=== PATIENT | male | born 1955 | race Hispanic/Latino ===

== ENCOUNTER 2019-01-11 16:51 | Inpatient (IN) | payer MEDICAID, OTHER ==
[~2019-01-11] VITALS: Ht 170.2 cm; Wt 98.0 kg
[~2019-01-11 16:51] MED LIST: APIX5TAB PO; FURO20TA6 PO; GLYB5TAB8 PO; INSU100I21 SQ; LINA5TAB PO; METH-370 PO; METO25 PO
[2019-01-11] MEDS ORDERED: ASPIRIN 81MG TAB.CHEW ONE (17:06)
[2019-01-11] MEDS ORDERED: IOHEXOL 350 MG/ML 100ML INFUS..BTL IV ONE (17:11)
[2019-01-11] MEDS ORDERED: HEPARIN SODIUM 1000UNIT/ML 10ML VIAL ONE (17:11)
[2019-01-11] MEDS ORDERED: LIDOCAINE HCL 2% 20ML ONE (17:11)
[2019-01-11] MEDS ORDERED: NITROGLYCERIN 5 MG/ML 10 ML VIAL IV ONE (17:11)
[2019-01-11] MEDS ORDERED: IOHEXOL-350 50ML VIAL IV ONE (17:11)
[2019-01-11] MEDS ORDERED: ATROPINE SULFATE 0.1 MG/ML 10 ML SYG IVP ONE (17:13)
[2019-01-11] MEDS ORDERED: DOPAMINE HCL 400 MG/D5%-WATER 0 ML IV ONE (17:13)
[2019-01-11] MEDS ORDERED: LIDOCAINE PF 2% 5ML ABBOJECT ONE (17:13)
[2019-01-11] MEDS ORDERED: BIVALIRUDIN 250 MG/VIAL IV ONE (17:16)
[2019-01-11 17:23] LABS: BASOPHILS % (AUTO) 0.4 % (0.0-5.0); EOSINOPHILS % (AUTO) 2.3 % (0.0-8.0); HEMATOCRIT 44.3 % (42-54); LYMPHOCYTES % (AUTO) 47.3 % (21.0-51.0); MEAN CORPUSCULAR HEMOGLOBIN 30.8 pg (27.0-33.0); MEAN CORPUSCULAR HGB CONC 34.2 g/dL (32.0-36.0); MONOCYTES % (AUTO) 11.1 % (3.0-13.0); NEUTROPHILS % (AUTO) 38.9 % (40.0-77.0); NUCLEATED RED BLOOD CELLS 0.1 % (0.0-0.19); PLATELET COUNT (AUTO) 201 K/uL (130-400); RED BLOOD CELL COUNT(AUTO) 4.92 MIL/uL (4.50-6.20); WHITE BLOOD COUNT (AUTO) 7.8 K/uL (4.8-10.8)
[2019-01-11] MEDS ORDERED: DILTIAZEM HCL 5 MG/ML 10 ML VIAL IV ONE ×3 (17:26→19:58)
[2019-01-11 17:29] LABS: CREATININE 0.8 mg/dL (0.5-1.5); POTASSIUM 4.2 mmol/L (3.5-5.1)
[2019-01-11 17:32] LABS: INR 1.01 (0.85-1.15); PARTIAL THROMBOPLASTIN TIME 25.2 SEC (26.3-35.5); PROTHROMBIN TIME 10.6 SEC (9.6-11.6)
[2019-01-11 17:40] LABS: ALBUMIN 3.8 g/dL (3.5-5.0); BILIRUBIN,TOTAL 1.3 mg/dL (0.2-1.0); TOTAL PROTEIN, SERUM 7.5 g/dL (6.0-8.3)
[2019-01-11 17:48] LABS: B-TYPE NATRIURETIC PEPTIDE 160 pg/mL (0-100)
[2019-01-11] MEDS: METOPROLOL TARTRATE 50 MG TAB PO SCH (18:00)
[2019-01-11] MEDS ORDERED: SODIUM CHLORIDE 0.9% 100 ML IV ONE (19:59)
[2019-01-11] MEDS ORDERED: DILTIAZEM 125MG/125ML NS IV PRN (20:00)
[2019-01-11 20:05] LABS: CREATINE KINASE, TOTAL 92 U/L (21-232); MYOGLOBIN 55 ng/mL (10-92); TROPONIN I < 0.04 ng/mL (0.00-0.06)
[2019-01-11] MEDS ORDERED: ENOXAPARIN SODIUM 100 MG/1 ML SQ ONE ×2 (20:15→20:22)
[2019-01-11] MEDS ORDERED: METOPROLOL TARTRATE 50 MG TAB ONE (20:22)
[2019-01-12] MEDS: SODIUM CHLORIDE 0.9% 1000ML 1,000 ML IV SCH ×3 (00:08→20:08)
[2019-01-12] MEDS ORDERED: MORPHINE SULFATE 4 MG/1ML SYG IV PRN (00:15)
[2019-01-12] MEDS ORDERED: MORPHINE SULFATE 2 MG/ML 1ML SYG IV PRN (00:15)
[2019-01-12 01:42] LABS: CHOLESTEROL 135 mg/dL (<200); HDL CHOLESTEROL 111 mg/dL (29-71); LDL DIRECT 90 mg/dL (0-99); TRIGLYCERIDES 65 mg/dL (30-200)
[2019-01-12] MEDS ORDERED: SODIUM CHLORIDE 0.9% 1000ML 1,000 ML IV ONE (02:52)
[2019-01-12] MEDS: METOPROLOL TARTRATE 50 MG TAB PO SCH ×4 (06:00→18:00)
[2019-01-12 06:46] LABS: BASOPHILS % (AUTO) 0.5 % (0.0-5.0); EOSINOPHILS % (AUTO) 2.8 % (0.0-8.0); HEMATOCRIT 42.4 % (42-54); LYMPHOCYTES % (AUTO) 51.5 % (21.0-51.0); MEAN CORPUSCULAR HGB CONC 34.1 g/dL (32.0-36.0); MEAN CORPUSCULAR VOLUME 90.9 fL (79-99); NEUTROPHILS % (AUTO) 36.2 % (40.0-77.0); NUCLEATED RED BLOOD CELLS 0.1 % (0.0-0.19); PLATELET COUNT (AUTO) 183 K/uL (130-400); RED BLOOD CELL COUNT(AUTO) 4.66 MIL/uL (4.50-6.20); RED CELL DISTRIBUTION WIDTH 14.1 % (11.0-15.5); WHITE BLOOD COUNT (AUTO) 6.5 K/uL (4.8-10.8)
[2019-01-12 06:57] LABS: ALBUMIN 3.5 g/dL (3.5-5.0); BILIRUBIN,TOTAL 1.7 mg/dL (0.2-1.0); CREATININE 0.8 mg/dL (0.5-1.5); POTASSIUM 4.1 mmol/L (3.5-5.1); TOTAL PROTEIN, SERUM 6.5 g/dL (6.0-8.3)
[2019-01-12] MEDS ORDERED: METF-445 PO (08:24)
[2019-01-12] MEDS ORDERED: LISI-617 PO (08:24)
[2019-01-12] MEDS ORDERED: GLIP5TAB11 PO (08:24)
[2019-01-12] MEDS ORDERED: PROP20TA7 PO (08:24)
[2019-01-12] MEDS ORDERED: CARB-38 PO (08:24)
[2019-01-12] MEDS ORDERED: METH10TA7 PO (08:24)
[2019-01-12] MEDS: ENOXAPARIN SODIUM 100 MG/1 ML SQ SCH (09:00)
[2019-01-12] MEDS ORDERED: METOPROLOL TARTRATE 25 MG TAB PO SCH (09:00)
[2019-01-12] MEDS ORDERED: ENOXAPARIN SODIUM 40 MG/0.4 ML SYRINGE SQ SCH (09:00)
[2019-01-12] MEDS: FAMOTIDINE/PF 20 MG/2 ML VIAL IV SCH ×2 (09:00→21:59)
[2019-01-12] MEDS ORDERED: AMIODARONE HCL 150 MG in DEXTROSE 5%-WATER 100 ML IV PRN (10:45)
[2019-01-12] MEDS ORDERED: FAMOTIDINE/PF 20 MG/2 ML VIAL IV ONE (10:59)
[2019-01-12] MEDS ORDERED: ENOXAPARIN SODIUM 100 MG/1 ML SQ ONE (10:59)
[2019-01-12] MEDS ORDERED: AMIODARONE HCL 900 MG in DEXTROSE 5%-WATER 500 ML IV PRN (11:00)
[2019-01-12 12:02] LABS: T4 (THYROXINE) 12.8 ug/dL (4.7-13.3); THYROID STIMULATING HORMONE 0.01 uIU/mL (0.36-3.74)
[2019-01-12] MEDS ORDERED: DILTIAZEM HCL 5 MG/ML 10 ML VIAL IV ONE (17:46)
[2019-01-12] MEDS ORDERED: SODIUM CHLORIDE 0.9% 100 ML IV ONE (17:46)
--- NOTE | 2019-01-12 21:00 | NUR ---
REPORT RECEIVED FROM JOSHUA QUINONEZ
[2019-01-12 21:30] VITALS: BP 123/76
--- NOTE | 2019-01-12 21:45 | NUR ---
PT ARRIVED FROM ER. PT IS AFLUTTER 70'S. STABLE. NO DISTRESS NOTED. WEAK. ABLE TO AMBULATE WITH ASSIST. AT BEDSIDE. PT ON CARDIZEM DRIP AND AMIODARONE DRIP. IV FLUIDS AT 100ML/HR. PT STATES HE HAS BEEN HAVING TROUBLE BREATHING WELL CHEST PAIN. AT THE MOMENT PT STATES HE FEELS GREAT AND WANTS TO GO HOME.
[2019-01-12] MEDS: ATORVASTATIN CALCIUM 10 MG TABLET PO SCH (21:59)
[2019-01-13] VITALS: BP 122/71
[2019-01-13] MEDS: METOPROLOL TARTRATE 50 MG TAB PO SCH ×2 (00:08→05:08)
[2019-01-13 04:00] VITALS: BP 110/74
[2019-01-13] MEDS: SODIUM CHLORIDE 0.9% 1000ML 1,000 ML IV SCH ×2 (04:05→16:17)
[2019-01-13 07:30] VITALS: BP 130/79
[2019-01-13] MEDS: FAMOTIDINE/PF 20 MG/2 ML VIAL IV SCH ×2 (09:03→20:40)
[2019-01-13] MEDS: ENOXAPARIN SODIUM 100 MG/1 ML SQ SCH ×2 (09:05→20:46)
[2019-01-13] MEDS: AMIODARONE HCL 200 MG TABLET PO SCH ×2 (10:55→20:39)
[2019-01-13] MEDS: DILTIAZEM HCL 60 MG TABLET PO SCH ×3 (10:56→22:20)
[2019-01-13] MEDS: METHIMAZOLE 10 MG TAB PO SCH ×2 (11:45→20:39)
[2019-01-13] MEDS ORDERED: GLUCAGON 1MG KIT 1 MG ML IM PRN (11:45)
[2019-01-13] MEDS ORDERED: DEXTROSE 50%-WATER 50 ML DISP.SYRIN IV PRN (11:45)
[2019-01-13] MEDS: METFORMIN HCL 850 MG TABLET PO SCH ×2 (12:42→16:17)
[2019-01-13] MEDS: PROPRANOLOL HCL 20 MG TAB PO SCH ×2 (12:42→20:39)
[2019-01-13] MEDS: LISINOPRIL 5 MG TABLET PO SCH ×2 (12:42→20:39)
[2019-01-13] MEDS: CARBIDOPA-LEVODOPA 25-100 TAB PO SCH ×2 (14:00→20:39)
[2019-01-13 16:00] VITALS: BP 116/78
[2019-01-13] MEDS: GLIPIZIDE 5 MG TABLET PO SCH (16:18)
[2019-01-13] MEDS: INSULIN HUMULIN R 100 UNIT/ML 3ML SQ SCH ×2 (16:30→20:46)
--- NOTE | 2019-01-13 17:44 | NUR ---
DCP CM met with pt discussed dc plans. Pt is independent prior to admission, lives at home with spouse. Denies any equipments/services. Pt feels safe to go back home, still drives, spouse able to assist with transportation and needs. Pt is a self pay, [facility] assisting, given [employer] packet. DC plan to home once stable. CM to cont to follow up. Addendum: 01/13/19 at 1746 by REDD PRAJAPATI LVN CM Amended: Links added.
--- NOTE | 2019-01-13 20:15 | NUR ---
PM ASSESSMENT PT SITTING IN BED. FAMILY @ BEDSIDE. A/O X 3. NO SOB. NO DISTRESS NOTED. DENIES CHEST PAIN OR DISCOMFORT. DENIES PALPITATIONS. TELE: AFLUTTER. DENIES N/V AND/OR DIARRHEA. PT TO BE NPO AFTER MIDNIGHT, PLAN FOR KARY SCAN IN AM. NPO STATUS EXPLAINED. STATES UNDERSTANDING. 0.9% NACL INFUSING @ 75 ML/HR. UP W/ASSISTANCE. CALL [facility]AD W/IN REACH.
[2019-01-13] MEDS: ATORVASTATIN CALCIUM 10 MG TABLET PO SCH (20:40)
[2019-01-13 20:52] VITALS: BP 120/54
[2019-01-14] VITALS (7 sets, daily range): BP systolic 118–158; BP diastolic 66–97
[2019-01-14] MEDS: SODIUM CHLORIDE 0.9% 1000ML 1,000 ML IV SCH (02:18)
[2019-01-14] MEDS: DILTIAZEM HCL 60 MG TABLET PO SCH ×4 (04:14→21:37)
[2019-01-14] MEDS: INSULIN HUMULIN R 100 UNIT/ML 3ML SQ SCH ×4 (05:42→21:00)
[2019-01-14] MEDS ORDERED: REGADENOSON 0.4 MG/5 ML PF SYG IVP SCH (09:15)
[2019-01-14] MEDS: METHIMAZOLE 10 MG TAB PO SCH ×2 (09:31→19:46)
[2019-01-14] MEDS: AMIODARONE HCL 200 MG TABLET PO SCH ×2 (09:31→19:46)
[2019-01-14] MEDS: LISINOPRIL 5 MG TABLET PO SCH ×2 (09:31→19:46)
[2019-01-14] MEDS: PROPRANOLOL HCL 20 MG TAB PO SCH ×2 (09:31→19:46)
[2019-01-14] MEDS: CARBIDOPA-LEVODOPA 25-100 TAB PO SCH ×3 (09:32→19:55)
[2019-01-14] MEDS: FAMOTIDINE/PF 20 MG/2 ML VIAL IV SCH ×2 (09:34→19:49)
[2019-01-14] MEDS: ENOXAPARIN SODIUM 100 MG/1 ML SQ SCH ×2 (09:35→19:50)
[2019-01-14] MEDS: METFORMIN HCL 850 MG TABLET PO SCH ×2 (13:43→16:47)
[2019-01-14] MEDS: GLIPIZIDE 5 MG TABLET PO SCH ×2 (13:43→16:47)
--- NOTE | 2019-01-14 19:45 | NUR ---
PM ASSESSMENT PT LAYING IN BED, HOB ELEVATED 30 DEGREES, WATCHING TV. FAMILY @ BEDSIDE. A/O X 3. NO SOB. NO DISTRESS NOTED. DENIES CHEST PAIN OR DISCOMFORT. DENIES PALPITATIONS. TELE: AFLUTTER 70s. DENIES N/V AND/OR DIARRHEA. UP W/ASSISTANCE. INSTRUCTED TO CALL FOR ASSISTANCE. CALL [facility] W/IN REACH.
[2019-01-14] MEDS: ATORVASTATIN CALCIUM 10 MG TABLET PO SCH (19:46)
[2019-01-15 03:30] VITALS: BP 109/73
[2019-01-15] MEDS: DILTIAZEM HCL 60 MG TABLET PO SCH ×4 (03:30→22:33)
[2019-01-15 05:21] LABS: HEMATOCRIT 39.2 % (42-54); MEAN CORPUSCULAR HEMOGLOBIN 30.9 pg (27.0-33.0); MEAN CORPUSCULAR HGB CONC 34.5 g/dL (32.0-36.0); MEAN CORPUSCULAR VOLUME 89.7 fL (79-99); NUCLEATED RED BLOOD CELLS 0.1 % (0.0-0.19); PLATELET COUNT (AUTO) 169 K/uL (130-400); RED BLOOD CELL COUNT(AUTO) 4.37 MIL/uL (4.50-6.20); RED CELL DISTRIBUTION WIDTH 13.7 % (11.0-15.5)
[2019-01-15 05:31] LABS: BAND NEUTROPHILS % (MANUAL) 6 % (0-2); LYMPHOCYTES % (MANUAL) 34 % (22-44); MAN.DIFF COMMENT-IMPRESSION MANUAL DIFFERENTIAL; MONOCYTES % (MANUAL) 2 % (2-9); PLATELET MORPHOLOGY COMMENT ADEQUATE; SEGMENTED NEUTROPHILS % 58 % (40-70)
[2019-01-15 05:37] LABS: CREATININE 0.8 mg/dL (0.5-1.5); POTASSIUM 3.3 mmol/L (3.5-5.1)
[2019-01-15] MEDS: INSULIN HUMULIN R 100 UNIT/ML 3ML SQ SCH ×4 (05:39→20:19)
[2019-01-15 07:30] VITALS: BP 144/98
[2019-01-15] MEDS: CARBIDOPA-LEVODOPA 25-100 TAB PO SCH ×3 (07:39→20:22)
[2019-01-15] MEDS: METFORMIN HCL 850 MG TABLET PO SCH ×2 (07:39→16:12)
[2019-01-15] MEDS: LISINOPRIL 5 MG TABLET PO SCH ×2 (07:39→20:18)
[2019-01-15] MEDS: PROPRANOLOL HCL 20 MG TAB PO SCH ×2 (07:39→20:18)
[2019-01-15] MEDS: GLIPIZIDE 5 MG TABLET PO SCH ×2 (07:39→16:12)
[2019-01-15] MEDS: AMIODARONE HCL 200 MG TABLET PO SCH ×2 (07:39→20:17)
[2019-01-15] MEDS: ENOXAPARIN SODIUM 100 MG/1 ML SQ SCH ×2 (07:40→20:19)
[2019-01-15] MEDS: FAMOTIDINE/PF 20 MG/2 ML VIAL IV SCH ×2 (07:40→20:19)
[2019-01-15] MEDS: METHIMAZOLE 10 MG TAB PO SCH ×2 (07:40→20:17)
--- NOTE | 2019-01-15 08:00 | NUR ---
ASSESSMENT PT IS AAOX4 DENIES CP DENIES SOB DENIES NV NO COMPLAINTS, BREATHING PATTERN IS EVEN AND UNLABORED. FAMILY IS AT BEDSIDE, AM MEDS GIVEN, CALL LIGHT WITHIN REACH.
[2019-01-15 11:00] VITALS: BP 132/80
[2019-01-15] MEDS ORDERED: ACETAMINOPHEN 325 MG TAB ONE (14:24)
[2019-01-15] MEDS ORDERED: ACETAMINOPHEN 325 MG TAB PO PRN (14:30)
[2019-01-15 16:00] VITALS: BP 136/74
--- NOTE | 2019-01-15 17:00 | NUR ---
STATUS UP IN CHAIR, NO COMPLAINTS FAMILY IS AT BEDSIDE
[2019-01-15 20:00] VITALS: BP 143/81
[2019-01-15] MEDS: ATORVASTATIN CALCIUM 10 MG TABLET PO SCH (20:18)
--- NOTE | 2019-01-15 23:30 | NUR ---
PT TRANSFERRED TO 227. AT BEDSIDE. PT STABLE. NO DISTRESS NOTED. CONTINUES AFLUTTER 80. NO SOB OR PAIN STATED. ABLE TO AMBULATE WITH MINIMAL ASSIST.
[2019-01-15 23:36] VITALS: BP 127/70
[2019-01-16] MEDS: DILTIAZEM HCL 60 MG TABLET PO SCH ×4 (03:45→23:41)
[2019-01-16 03:46] VITALS: BP 144/87
[2019-01-16 04:20] LABS: HEMATOCRIT 43.5 % (42-54); MEAN CORPUSCULAR HEMOGLOBIN 30.8 pg (27.0-33.0); MEAN CORPUSCULAR HGB CONC 34.1 g/dL (32.0-36.0); MEAN CORPUSCULAR VOLUME 90.3 fL (79-99); NUCLEATED RED BLOOD CELLS 0.1 % (0.0-0.19); PLATELET COUNT (AUTO) 187 K/uL (130-400); RED BLOOD CELL COUNT(AUTO) 4.81 MIL/uL (4.50-6.20); RED CELL DISTRIBUTION WIDTH 13.7 % (11.0-15.5); WHITE BLOOD COUNT (AUTO) 6.6 K/uL (4.8-10.8)
[2019-01-16 04:30] LABS: LYMPHOCYTES % (MANUAL) 26 % (22-44); MAN.DIFF COMMENT-IMPRESSION MANUAL DIFFERENTIAL; MONOCYTES % (MANUAL) 18 % (2-9); PLATELET MORPHOLOGY COMMENT ADEQUATE; SEGMENTED NEUTROPHILS % 56 % (40-70)
[2019-01-16 04:35] LABS: CREATININE 0.7 mg/dL (0.5-1.5); POTASSIUM 3.6 mmol/L (3.5-5.1)
[2019-01-16] MEDS ORDERED: POTASSIUM CHLORIDE 10% ELIXIR 20 MEQ/15 ML UDCUP PO PRN (04:45)
[2019-01-16] MEDS ORDERED: POTASSIUM CHLORIDE 20MEQ/100ML 100 ML IV PRN (04:45)
[2019-01-16] MEDS ORDERED: LIDOCAINE HCL-MPF 1% 2ML VIAL IV PRN (04:45)
[2019-01-16] MEDS ORDERED: MAGNESIUM 2GM PREMIX 50ML 50 ML IV PRN (04:45)
[2019-01-16] MEDS: POTASSIUM CHLORIDE 20 MEQ ERTAB PO PRN (05:57)
[2019-01-16] MEDS: INSULIN HUMULIN R 100 UNIT/ML 3ML SQ SCH ×4 (06:03→21:00)
--- NOTE | 2019-01-16 06:30 | NUR ---
PT GIVEN POTASSIUM PER PROTOCOL. LEVEL 3.6 THIS AM.
[2019-01-16] MEDS: GLIPIZIDE 5 MG TABLET PO SCH ×2 (08:00→16:45)
[2019-01-16] MEDS: METFORMIN HCL 850 MG TABLET PO SCH ×2 (08:00→16:44)
[2019-01-16 08:03] VITALS: BP 142/83
[2019-01-16] MEDS: FAMOTIDINE/PF 20 MG/2 ML VIAL IV SCH ×2 (08:46→21:12)
[2019-01-16] MEDS: AMIODARONE HCL 200 MG TABLET PO SCH ×3 (08:50→21:11)
[2019-01-16] MEDS: METHIMAZOLE 10 MG TAB PO SCH ×3 (08:50→21:12)
[2019-01-16] MEDS: PROPRANOLOL HCL 20 MG TAB PO SCH ×3 (08:50→21:11)
[2019-01-16] MEDS: CARBIDOPA-LEVODOPA 25-100 TAB PO SCH ×3 (08:50→21:12)
[2019-01-16] MEDS: LISINOPRIL 5 MG TABLET PO SCH ×3 (08:50→21:12)
[2019-01-16] MEDS: ENOXAPARIN SODIUM 100 MG/1 ML SQ SCH ×3 (08:50→21:13)
[2019-01-16 12:25] VITALS: BP 151/81
[2019-01-16 15:46] VITALS: BP 149/77
--- NOTE | 2019-01-16 16:30 | NUR ---
CALLED DR. Sakshi ENCINAS'S OFFICE TO NOTIFY PT. REQUESTING TO KNOW PLAN OF CARE RE:ATRIAL FLUTTER; SPOKE WITH [employer], OFFICE STAFF MEMBER WHO WILL PAGE DR. Sakshi ENCINAS.
--- NOTE | 2019-01-16 18:25 | NUR ---
RECEIVED CALL FROM DR. Sakshi ENCINAS. INFORMED OF PT.'S CONCERNS. ORDER TO CONSULT DR. Taye CARABALLO RECEIVED.
[2019-01-16 20:02] VITALS: BP 141/77
[2019-01-16] MEDS: ATORVASTATIN CALCIUM 10 MG TABLET PO SCH (21:11)
[2019-01-16 23:50] VITALS: BP 111/59
[2019-01-17 04:00] VITALS: BP 125/74
[2019-01-17] MEDS: DILTIAZEM HCL 60 MG TABLET PO SCH ×2 (04:48→11:08)
[2019-01-17] MEDS: INSULIN HUMULIN R 100 UNIT/ML 3ML SQ SCH ×2 (05:36→12:33)
[2019-01-17] MEDS: FAMOTIDINE/PF 20 MG/2 ML VIAL IV SCH (07:39)
[2019-01-17] MEDS: LISINOPRIL 5 MG TABLET PO SCH (07:39)
[2019-01-17] MEDS: GLIPIZIDE 5 MG TABLET PO SCH (07:39)
[2019-01-17] MEDS: METHIMAZOLE 10 MG TAB PO SCH (07:39)
[2019-01-17] MEDS: AMIODARONE HCL 200 MG TABLET PO SCH (07:39)
[2019-01-17] MEDS: PROPRANOLOL HCL 20 MG TAB PO SCH (07:43)
[2019-01-17] MEDS: CARBIDOPA-LEVODOPA 25-100 TAB PO SCH ×2 (08:14→14:24)
[2019-01-17] MEDS: METFORMIN HCL 850 MG TABLET PO SCH (08:14)
[2019-01-17 08:19] VITALS: BP 139/91
[2019-01-17] MEDS: POTASSIUM CHLORIDE 20 MEQ ERTAB PO PRN ×2 (08:34→10:24)
[2019-01-17] MEDS: ENOXAPARIN SODIUM 100 MG/1 ML SQ SCH (11:08)
[2019-01-17 12:24] VITALS: BP 126/82
[2019-01-17] MEDS ORDERED: AMIO200T44 PO (14:37)
[2019-01-17] MEDS ORDERED: DILT60TA3 PO (14:37)
[2019-01-17] MEDS ORDERED: APIX5TAB PO (16:08)
[2019-01-17 16:34] VITALS: BP 141/99
--- NOTE | 2019-01-17 19:09 | NUR ---
DISCHARGE PATIENT DISCHARGED PRIOR TO CM VISIT. VERIFIED WITH NURSE THAT PATIENT WAS GIVEN COUPON FOR ELIQUIS AND WAS INSTRUCTED TO GO TO DR. NANCY ENCINAS'S OFFICE FOR SAMPLES. NOHELIA
== END 2019-01-17 16:55 | disposition home or self-care (01) | DRG 309 ==
LOC: EDH 16:51 → EDHIP 16:52 → 4CH 01-12 21:20 → 2DH 01-15 23:08
PROVIDERS: ADMIT Internal Medicine; ATTEND Internal Medicine
DX: I48.3 Typical atrial flutter (principal); E87.0 Hyperosmolality and hypernatremia; E03.9 Hypothyroidism, unspecified; E11.9 Type 2 diabetes mellitus without complications; E78.5 Hyperlipidemia, unspecified; G20 Parkinson's disease; I11.9 Hypertensive heart disease without heart failure; E05.90 Thyrotoxicosis, unspecified without thyrotoxic crisis or storm; Z82.0 Family history of epilepsy and other diseases of the nervous system; Z82.3 Family history of stroke; Z82.49 Family history of ischemic heart disease and other diseases of the circulatory system; Z82.5 Family history of asthma and other chronic lower respiratory diseases; Z83.3 Family history of diabetes mellitus; Z91.14 Patient's other noncompliance with medication regimen
CPT/HCPCS: 36415; 71045; 78452; 80048; 80053; 80061; 82550; 82948; 83874; 83880; 84436; 84443; 84481; 84484; 85025; 85610; 85730; 93005; 93017; 93306; 96374; 99291; A9500; G0378; J0282; J0461; J0583; J1265; J1644; J1650; J2001; J2785; J3490; J7030; J7060; Q9967

== ENCOUNTER → 2023-07-14 | Outpatient (CLI) | payer OTHER, MEDICARE ==
[~2023-07-14] MED LIST changes: +AMIO200T44 PO; +CARB-38 PO; +DILT60TA3 PO; -FURO20TA6 PO; +GLIP5TAB15 PO; -GLYB5TAB8 PO; -INSU100I21 SQ; -LINA5TAB PO; +METF-445 PO; -METH-370 PO; +METH-387 PO; -METO25 PO; +PROP20TA7 PO
== END | disposition home or self-care (01) ==
LOC: SHCH 11:32
PROVIDERS: ATTEND Internal Medicine
DX: I35.8 Other nonrheumatic aortic valve disorders (principal); I50.9 Heart failure, unspecified; I48.0 Paroxysmal atrial fibrillation; I25.10 Atherosclerotic heart disease of native coronary artery without angina pectoris; I51.7 Cardiomegaly
CPT/HCPCS: 93306

== ENCOUNTER → 2023-07-27 | Outpatient (CLI) | payer OTHER, MEDICARE ==
[2023-07-27 12:30] LABS: BASOPHILS # (AUTO) 0.03 K/uL (0.00-0.20); BASOPHILS % (AUTO) 0.4 % (0.0-5.0); CREATININE 0.7 mg/dL (0.5-1.3); EOSINOPHILS # (AUTO) 0.29 K/uL (0.00-0.70); EOSINOPHILS % (AUTO) 4.2 % (0.0-8.0); HEMATOCRIT 45.9 % (42-54); IMMATURE GRANULOCYTE ABSOLUTE 0.02 K/uL (0-1); LYMPHOCYTES # (AUTO) 2.9 K/uL (1.0-4.8); LYMPHOCYTES % (AUTO) 41.9 % (21.0-51.0); MEAN CORPUSCULAR HEMOGLOBIN 30.3 pg (27.0-33.0); MEAN CORPUSCULAR HGB CONC 32.2 g/dL (32.0-36.0); MEAN CORPUSCULAR VOLUME 93.9 fL (79-99); MONOCYTES # (AUTO) 0.6 K/uL (0.1-1.0); MONOCYTES % (AUTO) 8.9 % (3.0-13.0); NEUTROPHILS # (AUTO) 3.1 K/uL (1.8-7.7); NEUTROPHILS % (AUTO) 44.3 % (40.0-77.0); PLATELET COUNT (AUTO) 198 K/uL (130-400); RED BLOOD CELL COUNT(AUTO) 4.89 MIL/uL (4.50-6.20); RED CELL DISTRIBUTION WIDTH 12.8 % (11.0-15.5)
== END | disposition home or self-care (01) ==
LOC: LAB 10:17
PROVIDERS: ATTEND Internal Medicine
DX: I48.0 Paroxysmal atrial fibrillation (principal); Z79.899 Other long term (current) drug therapy
CPT/HCPCS: 36415; 80048; 80061; 83880; 85025

== ENCOUNTER → 2023-09-14 | Outpatient (CLI) | payer OTHER, MEDICARE | END | disposition home or self-care (01) | LOC: LAB 10:06 | PROVIDERS: ATTEND Internal Medicine | DX: I48.0 Paroxysmal atrial fibrillation (principal); E78.5 Hyperlipidemia, unspecified; Z79.01 Long term (current) use of anticoagulants | CPT/HCPCS: 36415; 80048; 83880 ==

== ENCOUNTER 2023-10-13 05:50 | Day surgery (SDC) | payer OTHER, MEDICARE ==
[2023-10-13] VITALS (13 sets, daily range): BP systolic 98–124; BP diastolic 57–99; PULSE 88–105; RESP 14–17
[~2023-10-13] VITALS: Ht 170.2 cm; Wt 93.9 kg
[~2023-10-13 05:50] MED LIST changes: -AMIO200T44 PO; +ATOR40TA69 PO; +DAPA10TA PO; -DILT60TA3 PO; +FURO40TA5 PO; -METF-445 PO; +METF-527 PO; +METO2.5T2 PO; +METO200T37 PO; +PANT40TA54 PO; -PROP20TA7 PO; +RANO500T2 PO; +SERT-439 PO
[2023-10-13] MEDS ORDERED: 0.9%NACL 1000ML 1,000 ML IV ONE (05:58)
[2023-10-13] MEDS ORDERED: LIDOCAINE HCL 1% 20 ML VIAL ONE (07:51)
[2023-10-13] MEDS ORDERED: PROPOFOL 10 MG/ML 20ML VIAL IV ONE (07:51)
== END 2023-10-13 09:35 | disposition home or self-care (01) ==
LOC: DAH 05:50
PROVIDERS: ATTEND Internal Medicine Gastroenterology
DX: R93.3 Abnormal findings on diagnostic imaging of other parts of digestive tract (principal); R13.10 Dysphagia, unspecified; K92.1 Melena; K59.00 Constipation, unspecified; R10.13 Epigastric pain; K62.1 Rectal polyp; I48.91 Unspecified atrial fibrillation; I10 Essential (primary) hypertension; E11.9 Type 2 diabetes mellitus without complications; E78.2 Mixed hyperlipidemia; E03.9 Hypothyroidism, unspecified; G20.A1 Parkinson's disease without dyskinesia, without mention of fluctuations; Z79.899 Other long term (current) drug therapy; Z86.73 Personal history of transient ischemic attack (TIA), and cerebral infarction without residual deficits
CPT/HCPCS: 45378; 43248; 43239; 82948 ×2; J7030; J2704; A4620; A4215 ×2; A4223; A4222; A4221; A4663; A4606; J3490

== ENCOUNTER 2023-11-03 19:02 | Emergency (ER) | payer OTHER, MEDICARE ==
[~2023-11-03] VITALS: Ht 170.2 cm; Wt 93.0 kg
[~2023-11-03 19:02] MED LIST changes: -APIX5TAB PO; -ATOR40TA69 PO
[2023-11-03 20:59] LABS: BASOPHILS # (AUTO) 0.04 K/uL (0.00-0.20); BASOPHILS % (AUTO) 0.5 % (0.0-5.0); EOSINOPHILS % (AUTO) 2.4 % (0.0-8.0); HEMATOCRIT 46.8 % (42-54); IMMATURE GRANULOCYTE ABSOLUTE 0.03 K/uL (0-1); LYMPHOCYTES # (AUTO) 2.7 K/uL (1.0-4.8); LYMPHOCYTES % (AUTO) 32.4 % (21.0-51.0); MEAN CORPUSCULAR HEMOGLOBIN 30.5 pg (27.0-33.0); MEAN CORPUSCULAR HGB CONC 33.1 g/dL (32.0-36.0); MEAN CORPUSCULAR VOLUME 92.1 fL (79-99); MONOCYTES # (AUTO) 0.9 K/uL (0.1-1.0); MONOCYTES % (AUTO) 10.3 % (3.0-13.0); NEUTROPHILS # (AUTO) 4.5 K/uL (1.8-7.7); PLATELET COUNT (AUTO) 222 K/uL (130-400); RED BLOOD CELL COUNT(AUTO) 5.08 MIL/uL (4.50-6.20); RED CELL DISTRIBUTION WIDTH 13.1 % (11.0-15.5); WHITE BLOOD COUNT (AUTO) 8.3 K/uL (4.8-10.8)
[2023-11-03 21:08] LABS: CREATININE 1.1 mg/dL (0.5-1.3); POTASSIUM 3.2 mmol/L (3.5-5.1)
[2023-11-03 21:09] LABS: INR 1.11 (0.85-1.15); PROTHROMBIN TIME 11.9 SEC (9.6-11.6)
[2023-11-03 21:10] LABS: PARTIAL THROMBOPLASTIN TIME 28.2 SEC (26.3-35.5)
[2023-11-03 21:57] VITALS: BP 112/77; PULSE 64; RESP 20; O2SAT 99
[2023-11-03] MEDS ORDERED: POTA-192 PO (21:57)
[2023-11-03] MEDS: DEXAMETHASONE SOD PHOSPHATE 4 MG/ML 1ML VIAL IM ONE (22:04)
[2023-11-03] MEDS: POTASSIUM BICARB/CIT AC 25 MEQ TABLET.EFF PO SCH (22:04)
[2023-11-03] MEDS: ACETAMINOPHEN 500 MG TABLET PO ONE (22:05)
== END 2023-11-03 22:52 | disposition home or self-care (01) ==
LOC: EDH 19:02
DX: R60.0 Localized edema (principal); E87.6 Hypokalemia; M79.644 Pain in right finger(s); M79.89 Other specified soft tissue disorders; E86.0 Dehydration; I12.9 Hypertensive chronic kidney disease with stage 1 through stage 4 chronic kidney disease, or unspecified chronic kidney disease; E11.22 Type 2 diabetes mellitus with diabetic chronic kidney disease; N18.9 Chronic kidney disease, unspecified; G20.A1 Parkinson's disease without dyskinesia, without mention of fluctuations; Z79.84 Long term (current) use of oral hypoglycemic drugs; Z79.899 Other long term (current) drug therapy; Z98.890 Other specified postprocedural states; Z95.5 Presence of coronary angioplasty implant and graft; Z86.73 Personal history of transient ischemic attack (TIA), and cerebral infarction without residual deficits
CPT/HCPCS: 99285; 80048; 85025; 85610; 85730; 36415; 93971; 96372; J1100

== ENCOUNTER → 2023-11-11 | Outpatient (CLI) | payer OTHER, MEDICARE ==
[~2023-11-11] MED LIST changes: +POTA-192 PO
== END | disposition home or self-care (01) ==
LOC: RAH 13:00
PROVIDERS: ATTEND Family Medicine
DX: R13.10 Dysphagia, unspecified (principal); K22.4 Dyskinesia of esophagus
CPT/HCPCS: 74230; 92611

== ENCOUNTER → 2024-01-12 | Outpatient (CLI) | payer OTHER, MEDICARE | END | disposition home or self-care (01) | LOC: SHCH 14:33 | PROVIDERS: ATTEND Internal Medicine | DX: I87.2 Venous insufficiency (chronic) (peripheral) (principal); I87.1 Compression of vein | CPT/HCPCS: 93970 ==

== ENCOUNTER → 2024-01-14 | Outpatient (CLI) | payer OTHER, MEDICARE ==
[2024-01-14] MEDS: REGADENOSON 0.4 MG/5 ML PF SYG IVP ONE (12:11)
== END | disposition home or self-care (01) ==
LOC: SHCH 07:40
PROVIDERS: ATTEND Internal Medicine
DX: I48.0 Paroxysmal atrial fibrillation (principal); I87.2 Venous insufficiency (chronic) (peripheral); R07.9 Chest pain, unspecified; Z79.01 Long term (current) use of anticoagulants
CPT/HCPCS: 78452; 93017; J2785; A9500 ×2

== ENCOUNTER 2024-04-11 07:24 | Day surgery (SDC) | payer OTHER, MEDICARE ==
[2024-04-10 15:31] LABS: BASOPHILS # (AUTO) 0.04 K/uL (0.00-0.20); BASOPHILS % (AUTO) 0.6 % (0.0-5.0); EOSINOPHILS # (AUTO) 0.14 K/uL (0.00-0.70); EOSINOPHILS % (AUTO) 2.1 % (0.0-8.0); HEMATOCRIT 46.2 % (42-54); IMMATURE GRANULOCYTE ABSOLUTE 0.01 K/uL (0-1); LYMPHOCYTES # (AUTO) 2.7 K/uL (1.0-4.8); LYMPHOCYTES % (AUTO) 39.1 % (21.0-51.0); MEAN CORPUSCULAR VOLUME 96.9 fL (79-99); MONOCYTES # (AUTO) 0.6 K/uL (0.1-1.0); MONOCYTES % (AUTO) 9.4 % (3.0-13.0); NEUTROPHILS # (AUTO) 3.3 K/uL (1.8-7.7); NEUTROPHILS % (AUTO) 48.7 % (40.0-77.0); PLATELET COUNT (AUTO) 189 K/uL (130-400); RED BLOOD CELL COUNT(AUTO) 4.77 MIL/uL (4.50-6.20); RED CELL DISTRIBUTION WIDTH 13.2 % (11.0-15.5); WHITE BLOOD COUNT (AUTO) 6.8 K/uL (4.8-10.8)
[2024-04-10 15:40] VITALS: BP 126/93; PULSE 95; RESP 18; TEMP 97.5
[2024-04-10 15:44] LABS: INR 1.11 (0.85-1.15); PROTHROMBIN TIME 11.9 SEC (9.6-11.6)
[2024-04-10 15:46] LABS: CREATININE 0.8 mg/dL (0.5-1.3); PARTIAL THROMBOPLASTIN TIME 29.2 SEC (26.3-35.5); POTASSIUM 4.3 mmol/L (3.5-5.1)
[2024-04-10 16:03] LABS: B-TYPE NATRIURETIC PEPTIDE 181 pg/mL (0-100)
[2024-04-11] VITALS (22 sets, daily range): BP systolic 99–145; BP diastolic 66–100; PULSE 89–115; RESP 12–20; TEMP 97.1–98.2
[~2024-04-11] VITALS: Ht 170.2 cm; Wt 95.7 kg
[~2024-04-11 07:24] MED LIST changes: +APIX5TAB PO; +ASPI-1443 PO; +ATOR40TA71 PO; -CARB-38 PO; +CARB-39 PO; -DAPA10TA PO; -METF-527 PO; -METO2.5T2 PO; -POTA-192 PO; +POTA-200 PO; -RANO500T2 PO
--- NOTE | 2024-04-11 08:00 | EKG ---
[facility] Test Date: 2024-04-11 Test Time: 08:28:54 Pat Name: JAYLA MESA Department: [facility] Patient ID: [id number] Room: [facility] Gender: M Retanner: [id number] : [id number] Requested By: HARLEY GRIFFITHS Order Number: [id number] Reading MD: Jesus Cleveland Measurements Intervals [place] Rate: 130 P: 0 NH: 0 QRS: -35 QRSD: 126 T: 13 QT: 354 QTc: 533 Interpretive Statements Afib/flut and V-paced complexes Right bundle branch block Compared to ECG 01/12/2019 00:50:29 Right bundle-branch block now present Atrial flutter no longer present AV block, advanced (high-grade) no longer present Electronically Signed On 04-11-2024 18:11:09 SNOW TECHNICIAN by Jesus Cleveland Please click the below link to view image of tracing.
[2024-04-11] MEDS: 0.9%NACL 1000ML 1,000 ML IV SCH (08:33)
[2024-04-11] MEDS ORDERED: IODIXANOL 320 MG/ML 100 ML VIAL ONE (10:01)
[2024-04-11] MEDS ORDERED: LIDOCAINE HCL 400MG/20ML VIAL ONE (10:01)
[2024-04-11] MEDS ORDERED: HEParin-NS 1,000 UNIT/500 ML 1,000 ML IV ONE (10:02)
[2024-04-11] MEDS ORDERED: HEParin 10,000 UNIT/10ML (1,000 UNIT/ML) VIAL ONE (10:02)
[2024-04-11] MEDS ORDERED: SUCCINYLCHOLINE CHLORIDE 20 MG/ML 10 ML VIAL ONE (10:12)
[2024-04-11] MEDS ORDERED: proPOFol 10 MG/ML 20ML VIAL IV ONE (10:12)
[2024-04-11] MEDS ORDERED: rocuRONium bROMide 10MG/1ML 5ML VL ONE (10:12)
[2024-04-11] MEDS ORDERED: MIDAZOLAM HCL 1 MG/ML 2ML VIAL ONE (10:12)
[2024-04-11] MEDS ORDERED: FENTanyl CITRate PF 50 MCG/1 ML 2ML VIAL ONE (10:13)
[2024-04-11] MEDS ORDERED: phenylEPHRINE HCL 10 MG/ML 1ML VIAL IV ONE (11:21)
--- NOTE | 2024-04-11 11:52 | PRN ---
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 PROCEDURE: [] Bilateral common femoral venous sheath placement 9 Polish Bilateral common femoral venogram Intravascular ultrasound pre and post stent placement to IVC, bilateral common iliac, external iliac, and common femoral veins Stent placement to left common iliac and external iliac vein with the use of a 16 mm x 100 mm Medtronic venous self expanding stent Stent placement to right common iliac and external iliac vein with the use of a 14 mm x 100 mm Medtronic venous self expanding stent Please see separate anesthesiology sheet under anesthesiology DATE OF PROCEDURE: April 11, 2024 BASEBALL HAND SEWER: Jesus Cleveland MD, F.A.C.C. PROCEDURE NOTE: [] The patient was brought to the catheterization suite and prepped and draped in sterile fashion. An IV was started if not in place and both groins were exposed for venous access. General anesthesia occurred under anesthesiology department. Please see separate report. 1% lidocaine was used for local anesthesia micro puncture kit was used to gain access 9 Polish sheath placed in left common femoral vein left common femoral venogram performed. IVUS performed IVC left common iliac external iliac common femoral vein. Measurements are as described below. Next Omni flush catheter used to cross over the right side over an 035 glidewire and advanced parked in the right common femoral vein and then a right common femoral venogram was performed. This was followed by removal vomiting sheath catheter and IVUS catheter then placed over wire interrogation of right common femoral external iliac and common iliac vein were performed. Measurements are described below. Patient was noted to have bilateral significant iliac vein stent compression. Therefore 2% lidocaine was used for local anesthesia on the right side access was obtained and a 9 Polish sheath was placed to the right common femoral vein. Next simultaneous in contrast injections were performed as a roadmap. Next IVUS catheter was used for demarcation to placed stent. Next a 14 mm x 100 mm Medtronic venous acne expanding stent was then placed into the distal right common iliac vein extending throughout the entirety of the external iliac vein and deployed. Next a 16 mm x 100 mm Medtronic venous self expanding stent was then placed over wire and parked in the left common iliac vein and external iliac vein and deployed. Next follow up intravascular ultrasounds were done on each side revealing excellent stent apposition no residual compression present. At end of case Vascade devices were used for closure of both sides and no complications occurred. FINDings 51% compression of left common iliac vein 54% compression right external iliac vein 16 mm x 100 mm Medtronic venous self expanding stent to left common iliac and external iliac vein 14 mm x 100 mm Medtronic venous self expanding stent to right common and external iliac vein IMPRESSION: [] Critical bilateral common iliac and external iliac vein compression Successful primary stent placement to bilateral common iliac and external iliac veins PLAN: [] Monitor and hydrate next 4 hours Discharge home later today No heavy lifting 5 lb or greater for 5 days No driving for 24 hours JESUS CLEVELAND MD Apr 11, 2024 11:52
[2024-04-11] MEDS ORDERED: DEXTROSE 50%-WATER 50 ML DISP.SYRIN IV PRN (12:00)
[2024-04-11] MEDS ORDERED: 0.9%NACL 1000ML 1,000 ML IV SCH (12:00)
[2024-04-11] MEDS ORDERED: GLUCAGON 1MG KIT 1 MG ML IM PRN (12:00)
[2024-04-11] MEDS: ASPIRIN 81 MG EC TAB PO ONE (13:18)
[2024-04-11] MEDS: cloPIDOgrel 300MG TAB PO ONE (13:18)
[2024-04-11] MEDS ORDERED: INSULIN humuLIN R 100 UNIT/ML 3ML SQ SCH (16:30)
== END 2024-04-11 16:13 | disposition home or self-care (01) ==
LOC: DAH 07:24
PROVIDERS: ATTEND Internal Medicine Cardiovascular Disease
DX: I87.1 Compression of vein (principal); I87.2 Venous insufficiency (chronic) (peripheral); I48.91 Unspecified atrial fibrillation; I45.10 Unspecified right bundle-branch block; I25.10 Atherosclerotic heart disease of native coronary artery without angina pectoris; E11.9 Type 2 diabetes mellitus without complications; G20.A1 Parkinson's disease without dyskinesia, without mention of fluctuations; E66.9 Obesity, unspecified; I10 Essential (primary) hypertension; Z68.32 Body mass index [BMI] 32.0-32.9, adult
CPT/HCPCS: 80048; 83880; 85025; 85610; 85730; 36415; 37238; 93005; 37239; 36012; 37252; 37253 ×5; 82948 ×3; 75822; C1876 ×2; C1769; C1894 ×3; C1760 ×2; C1753; J3010; J3490 ×2; J0330; J7030; J1644 ×2; J2250; J2704; J2371; Q9967; A4215; A4222; A4221; A4663; A4216; A4606; A4223 ×3; 96360; 96361

== ENCOUNTER → 2024-04-24 | Outpatient (CLI) | payer OTHER, MEDICARE ==
--- NOTE | 2024-04-25 17:14 | HMCSR ---
APPROVED REPORT Left Lower Extremity Venous Study for DVT. Indications s/p Junie Left GSV 04/21/2024 Vein Imaging CFV (L): Non-Compressible, Absent/ Recanalized Flow. Evidence of DVT SFJ (L): Normal flow, augmentation and compression. No evidence of DVT. FEM (L): Normal flow, augmentation and compression. No evidence of DVT. POP (L): Normal flow, augmentation and compression. No evidence of DVT. DFV (L): Normal flow, augmentation and compression. No evidence of DVT. PTV (L): Normal flow, augmentation and compression. No evidence of DVT. Peroneals (L): Normal flow, augmentation and compression. No evidence of DVT. Technologist Impression Left CFV shows non compressibility with absent/ restricted flow. All other deep veins of the left lower extremity appear patent and compressible without thrombus. Left GSV is closed from junction to proximal calf. Conclusion Noncompressibility noted of left common femoral vein No active thrombus noted Occluded left greater saphenous vein Consider repeat lower extremity venous Doppler in 2 weeks Conclusion Noncompressibility noted of left common femoral vein No active thrombus noted Occluded left greater saphenous vein Consider repeat lower extremity venous Doppler in 2 weeks
== END | disposition home or self-care (01) ==
LOC: SHCH 11:47
PROVIDERS: ATTEND Internal Medicine Cardiovascular Disease
DX: I82.812 Embolism and thrombosis of superficial veins of left lower extremity (principal); I87.2 Venous insufficiency (chronic) (peripheral)
CPT/HCPCS: 93971

== ENCOUNTER → 2024-05-22 | Outpatient (CLI) | payer OTHER, MEDICARE ==
--- NOTE | 2024-05-24 07:26 | HMCSR ---
APPROVED REPORT Right Lower Extremity Venous Study for DVT. Indications z09; s/p Kellyin Right GSV 05/19/2024 Vein Imaging CFV (R): Normal flow, augmentation and compression. No evidence of DVT. 11.6mm 0.0ms of reflux. SFJ (R): Normal flow, augmentation and compression. No evidence of DVT. FEM (R): Normal flow, augmentation and compression. No evidence of DVT. POP (R): Partially Compressible, normal augmentation, recanalized flow. No evidence of acute DVT. DFV (R): Normal flow, augmentation and compression. No evidence of DVT. PTV (R): Normal flow, augmentation and compression. No evidence of DVT. Peroneals (R): Normal flow, augmentation and compression. No evidence of DVT. Technologist Impression Deep veins of the right lower extremity appear patent and compressible without thrombus. Right Popliteal vein demonstrates partially compressible, normal augmentation, recanalized flow. No e vidence of acute DVT. Superficial venous insufficiency noted in the RGSV. RGSV junction 6.9mm 0.0ms prx thigh 6.3mm 0.0ms mid thigh 6.2mm 3000ms knee 5.6mm 2639ms calf 2.9mm 0.0ms Conclusion Superficial venous reflux noted of right greater saphenous vein suggesting insufficient closure after Rosi vein ablation Consider repeat venous Doppler four weeks Conclusion Superficial venous reflux noted of right greater saphenous vein suggesting insufficient closure after Rosi vein ablation Consider repeat venous Doppler four weeks
== END | disposition home or self-care (01) ==
LOC: SHCH 08:44
PROVIDERS: ATTEND Internal Medicine Cardiovascular Disease
DX: I87.2 Venous insufficiency (chronic) (peripheral) (principal); Z09 Encounter for follow-up examination after completed treatment for conditions other than malignant neoplasm
CPT/HCPCS: 93971

== ENCOUNTER → 2024-07-04 | Outpatient (CLI) | payer OTHER, MEDICARE ==
--- NOTE | 2024-07-05 08:45 | HMCSR ---
APPROVED REPORT Bilateral Lower Extremity Venous Study for DVT., Venous Competence. Indications i87.1,i87.2 Vein Imaging CFV (R): Normal flow, augmentation and compression. No evidence of DVT. 10.1mm 1417ms of reflux. SFJ (R): Normal flow, augmentation and compression. No evidence of DVT. FEM (R): Normal flow, augmentation and compression. No evidence of DVT. POP (R): Normal flow, augmentation and compression. No evidence of DVT. DFV (R): Normal flow, augmentation and compression. No evidence of DVT. PTV (R): Normal flow, augmentation and compression. No evidence of DVT. Peroneals (R): Normal flow, augmentation and compression. No evidence of DVT. CFV (L): Normal flow, augmentation and compression. No evidence of DVT. 10.2mm 0.0ms of reflux. SFJ (L): Normal flow, augmentation and compression. No evidence of DVT. FEM (L): Normal flow, augmentation and compression. No evidence of DVT. POP (L): Normal flow, augmentation and compression. No evidence of DVT. DFV (L): Normal flow, augmentation and compression. No evidence of DVT. PTV (L): Normal flow, augmentation and compression. No evidence of DVT. Peroneals (L): Normal flow, augmentation and compression. No evidence of DVT. Technologist Impression Deep veins of the bilateral lower extremities appear patent and compressible without thrombus. Deep venous reflux in the RCFV. Superficial venous insufficinecy in the RGSV. RGSV junction 6.2mm 0.0ms thigh 4.1mm 2161ms knee 5.1mm 1850ms calf 2.8mm 0.0ms (branches) RSSV prox 2.8mm 0.0ms mid 2.5mm 0.0ms LGSV junction 4.2mm 478ms closed distally LSSV prox 2.0mm 0.0ms mid 3.0mm 0.0ms Conclusion Severe deep venous reflux noted to right common femoral vein Severe superficial venous reflux in the right greater saphenous vein Consider formal venography with intravascular ultrasound if iliac vein compression is suspected Conclusion Severe deep venous reflux noted to right common femoral vein Severe superficial venous reflux in the right greater saphenous vein Consider formal venography with intravascular ultrasound if iliac vein compression is suspected
== END | disposition home or self-care (01) ==
LOC: SHCH 12:55
PROVIDERS: ATTEND Internal Medicine Cardiovascular Disease
DX: I87.2 Venous insufficiency (chronic) (peripheral) (principal); R60.9 Edema, unspecified
CPT/HCPCS: 93970

== ENCOUNTER → 2025-02-21 | Outpatient (CLI) | payer OTHER, MEDICARE ==
[~2025-02-21] MED LIST changes: +IOHEXOL 350 MG/ML 100ML INFUS..BTL IV ONE
--- NOTE | 2025-02-21 09:01 | NUR ---
PATIENT EXHIBITED ERRATIC HEART RATE RANGING FROM 50-150 BPM. PATIENT STATES SAME EXAM WAS TRIED AND FAILED AT [facility] WITH SAME RESULTS DUE TO HEART RATE. DR. TAVAREZ WAS CONTACTED VIA [employer] [facility]. EXAM WAS CANCELED.
== END | disposition home or self-care (01) ==
LOC: RAH 08:06
PROVIDERS: ATTEND Internal Medicine Cardiovascular Disease
DX: I25.110 Atherosclerotic heart disease of native coronary artery with unstable angina pectoris (principal)
CPT/HCPCS: 75574; J3490; Q9967